=== PATIENT | female | born 1965 | race Caucasian/White ===

== ENCOUNTER 2017-09-15 16:52 | Emergency (ER) | payer MEDICAID ==
[~2017-09-15] VITALS: Ht 165.1 cm; Wt 74.8 kg
[~2017-09-15 16:52] MED LIST: CLINDAMYCIN HC300 MG ORAL; IBUPROFEN600 MG ORAL
[2017-09-15 17:30] VITALS: BP 98/70
[2017-09-15] MEDS ORDERED: Sodium Chloride 500ML 500 ML IV ONE (17:38)
[2017-09-15 17:49] LABS: APPEARANCE,URINE SLIGHTLY CLOUDY; KETONES,URINE 1+ (NEGATIVE); LEUKOCYTE ESTERASE ,URINE 2+ (NEGATIVE); NITRITE,URINE NEGATIVE (NEGATIVE); PH,URINE 7 (4.5-8.0); PROTEIN,URINE 2+ (NEGATIVE); UROBILINOGEN,URINE NORMAL MG/DL (0.0-1.0)
[2017-09-15 17:59] LABS: BACTERIA,URINE FEW /HPF; RBC,URINE 0-2 /HPF (0 - 2); SQUAMOUS EPITHELIAL CELL,UR MODERATE /LPF (NONE/OCC)
[2017-09-15 18:11] LABS: BASOPHILS % (AUTO) 0.8 % (0.0-2.0); EOSINOPHILS % (AUTO) 0.3 % (0.0-3.0); LYMPHOCYTES % (AUTO) 11.1 % (20.0-45.0); MEAN CORPUSCULAR HEMOGLOBIN 27.5 PG (27.0-31.0); MEAN CORPUSCULAR HGB CONC 32.8 G/DL (32.0-36.0); MEAN CORPUSCULAR VOLUME 84 FL (80-99); MEAN PLATELET VOLUME 8.3 FL (6.5-10.1); MONOCYTES % (AUTO) 8.8 % (1.0-10.0); PLATELET COUNT 223 K/UL (150-450); RED BLOOD COUNT 4.47 M/UL (4.20-5.40); RED CELL DISTRIBUTION WIDTH 11.6 % (11.6-14.8); WHITE BLOOD COUNT 10.7 K/UL (4.8-10.8)
[2017-09-15 18:30] VITALS: BP 95/60
[2017-09-15 18:34] LABS: ANION GAP 8 mmol/L (5-15); CALCIUM 9.8 MG/DL (8.5-10.1); CARBON DIOXIDE 29 MMOL/L (21-32); CHLORIDE 99 MMOL/L (98-107); CREATININE 1.2 MG/DL (0.55-1.30); GLOMERULAR FILTRATION RATE 47.2 mL/min (>60); POTASSIUM 4.4 MMOL/L (3.5-5.1); SODIUM 136 MMOL/L (136-145)
[2017-09-15 18:39] LABS: ALANINE AMINOTRANSFERASE 16 U/L (12-78); ALBUMIN/GLOBULIN RATIO 0.8 (1.0-2.7); ASPARTATE AMINO TRANSFERASE 20 U/L (15-37); TOTAL PROTEIN 8.6 G/DL (6.4-8.2)
[2017-09-15 19:47] VITALS: BP 100/64
[2017-09-15] MEDS ORDERED: cefTRIAXone 1 GM in NS 55 ML IVPB ONE (20:00)
--- NOTE | 2017-09-15 21:03 | Emergency Room Report ---
History of Present Illness General Chief Complaint: Fever Source: Patient Present Illness HPI The patient presents after syncopal episode. She has had fevers up to 102 at home for the past 2-3 days. Chills, poor appetite. She has taken Excedrin rarely. She has felt dehydrated. Denies cough. Slight nausea without vomiting. No change in bowels. No dysuria. Myalgias without headache. Preceding the LOC, she had gotten up. No chest pain, nausea or palpitations. Prior treatment for facial cellulitis without rash in face of on other parts of body. Denies major medical problems. 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 Last Menstrual Period: 2 years ago Now: No Reviewed Nursing Documentation: PMH: Agreed, PSxH: Agreed Review of Systems All Other Systems: negative except mentioned in HPI Physical Exam Vital Signs Date Time Temp Pulse Resp B/P (MAP) Pulse Ox O2 Delivery O2 Flow Rate FiO2 09/15/17 16:55 98.8 87 14 109/70 95 Room Air Sp02 EP Interpretation: reviewed, normal General Appearance: well appearing, no apparent distress, GCS 15 Head: normocephalic Eyes: bilateral eye normal inspection, bilateral eye PERRL ENT: moist mucus membranes Neck: supple Respiratory: lungs clear, normal breath sounds Cardiovascular #1: regular rate, rhythm Cardiovascular #2: 2+ radial (R) Gastrointestinal: normal inspection, normal bowel sounds, non tender, no mass, non-distended Musculoskeletal: back normal, gait/station normal, normal range of motion Neurologic: alert, oriented x3, research psychologist III-XII nml as tested, motor strength/tone normal, DTRs symmetric, sensory intact, cerebellar normal, normal gait, speech normal Psychiatric: mood/affect normal Skin: normal inspection, no rash, warm/dry Medical Decision Making Diagnostic Impression: Primary Impression: Fever Qualified Codes: R50.81 - Fever presenting with conditions classified elsewhere Additional Impressions: Syncope Qualified Codes: R55 - Syncope and collapse UTI (urinary tract infection) Qualified Codes: N30.00 - Acute cystitis without hematuria ER Course Patient presents with febrile illness and syncope. Ddx: dehydration, AMI, arrhythmia, vasovagal amongst others. VS and hx against PE. Evaluation with EKG, CXR, labs and UA. Treatment with IV hydration and tylenol. Labs with pyuria, rest normal. EKG no injury, CXR no infiltrates. Overall, looks like viral syndrome, though will treat pyuria. Rocephin given. Patient improved. Patient stable for outpatient observation and treatment. Laboratory Tests Test 09/15/17 17:17 09/15/17 17:50 Urine Color Yellow Urine Appearance Slightly cloudy Urine pH 7 (4.5-8.0) Urine Specific [place] 1.010 (1.005-1.035) Urine Protein 2+ (NEGATIVE) H Urine Glucose (UA) Negative (NEGATIVE) Urine Ketones 1+ (NEGATIVE) H Urine Occult Blood Negative (NEGATIVE) Urine Nitrite Negative (NEGATIVE) Urine Bilirubin Negative (NEGATIVE) Urine Urobilinogen Normal MG/DL (0.0-1.0) Urine Leukocyte Esterase 2+ (NEGATIVE) H Urine RBC 0-2 /HPF (0 - 2) Urine WBC 5-10 /HPF (0 - 2) H Urine Squamous Epithelial Cells Moderate /LPF (NONE/OCC) H Urine Bacteria Few /HPF (NONE) Urine HCG, Qualitative Negative White Blood Count 10.7 K/UL (4.8-10.8) Red Blood Count 4.47 M/UL (4.20-5.40) Hemoglobin 12.3 G/DL (12.0-16.0) Hematocrit 37.5 % (37.0-47.0) Mean Corpuscular Volume 84 FL (80-99) Mean Corpuscular Hemoglobin 27.5 PG (27.0-31.0) Mean Corpuscular Hemoglobin Concent 32.8 G/DL (32.0-36.0) Red Cell Distribution Width 11.6 % (11.6-14.8) Platelet Count 223 K/UL (150-450) Mean Platelet Volume 8.3 FL (6.5-10.1) Neutrophils (%) (Auto) 79.0 % (45.0-75.0) H Lymphocytes (%) (Auto) 11.1 % (20.0-45.0) L Monocytes (%) (Auto) 8.8 % (1.0-10.0) Eosinophils (%) (Auto) 0.3 % (0.0-3.0) Basophils (%) (Auto) 0.8 % (0.0-2.0) Sodium Level 136 MMOL/L (136-145) Potassium Level 4.4 MMOL/L (3.5-5.1) Chloride Level 99 MMOL/L (98-107) Carbon Dioxide Level 29 MMOL/L (21-32) Anion Gap 8 mmol/L (5-15) Blood Urea Nitrogen 13 mg/dL (7-18) Creatinine 1.2 MG/DL (0.55-1.30) Estimate Glomerular Filtration Rate 47.2 mL/min (>60) Glucose Level 115 MG/DL (74-106) H Calcium Level 9.8 MG/DL (8.5-10.1) Total Bilirubin 0.6 MG/DL (0.2-1.0) Aspartate Amino Transferase (AST) 20 U/L (15-37) Alanine Aminotransferase (ALT) 16 U/L (12-78) Alkaline Phosphatase 76 U/L (46-116) Total Creatine Kinase 102 U/L (26-308) Troponin I 0.003 ng/mL (0.000-0.056) Total Protein 8.6 G/DL (6.4-8.2) H Albumin 3.7 G/DL (3.4-5.0) Globulin 4.9 g/dL Albumin/Globulin Ratio 0.8 (1.0-2.7) L Microbiology Date/Time Source Procedure Growth Status 09/15/17 17:57 Nose Influenza Types A,B Antigen ([facility]) - Final Complete EKG Diagnostic Results Rate: normal Rhythm: NSR ST Segments: no acute changes Rhythm Strip Diag. Results EP Interpretation: yes Rhythm: NSR, no PVC's, no ectopy Chest X-Ray Diagnostic Results Chest X-Ray Diagnostic Results : Chest X-Ray Ordered: Yes # of Views/Limited/Complete: 1 View Indication: Other Interpretation: no consolidation, no effusion, no pneumothorax, no acute cardiopulmonary disease, other - h/o pulmonary nodule in past Impression: No acute disease Electronically Signed by: Eh Tinoco MD Status: improved Disposition: HOME, SELF-CARE Condition: Improved Scripts Acetaminophen (Tylenol) 325 Mg Tablet 650 MG ORAL Q6H Y for Prn Pain/Headache/Temp > 101, #30 TAB 0 Refills Prov: Eh Tinoco M.D. 12/6/17 Nitrofurantoin Monohyd/M-Cryst* (MACROBID 100 MG*) 100 Mg Capsule 100 MG ORAL EVERY 12 HOURS, #14 CAP Prov: Eh Tinoco M.D. 09/15/17 Referrals: NON PHYSICIAN (PCP) Eh Tinoco M.D. Sep 15, 2017 21:03
[2017-09-15] MEDS ORDERED: TYLENOL325 MG ORAL (21:19)
[2017-09-15] MEDS ORDERED: NITROFURANTOIN100 M2 ORAL (21:19)
[2017-09-15 21:23] VITALS: BP 92/61
[2017-09-15 21:43] VITALS: BP 92/61
--- NOTE | 2017-09-16 09:08 | Diagnostic Imaging Report ---
Indication: SYNCOPE Technique: One view of the chest Comparison: 07/03/2005 Findings: Lungs and pleural spaces are clear. Heart size is normal. Previously demonstrated bibasilar atelectasis is no longer evident Impression: No acute process
--- NOTE | 2017-09-17 11:34 | Cardiology Report ---
APPROVED REPORT EKG Measurement Heart [id number] [id number] Normal sinus rhythm Possible Left atrial enlargement Low voltage QRS Borderline ECG
== END 2017-09-15 21:43 | disposition home or self-care (01) ==
LOC: EMR 17:31
DX: N39.0 Urinary tract infection, site not specified (principal); R55 Syncope and collapse
CPT/HCPCS: 36415; 71010; 80053; 81003; 81025; 82550; 84484; 85025; 86710; 93005; 96361; 96365; 99284; J0696; J7040